=== PATIENT | female | born 1975 | race African-American/Black ===

== ENCOUNTER 2024-09-04 12:40 | Inpatient (IN) | payer OTHER ==
[2024-09-04 13:19] VITALS: BMI 29.7
[2024-09-04] MEDS ORDERED: TRIMETHOBENZAMIDE HCL 200MG/2ML INJ IM ONE (13:43)
[2024-09-04] MEDS ORDERED: LORazepam 2 MG/ML SDV VIAL ONE (13:43)
[2024-09-04] MEDS ORDERED: BENZOCAINE/MENTHOL (CHLORASEPTIC ) LOZENGE MM PRN (13:45)
[2024-09-04] MEDS ORDERED: guaiFENesin 600 MG TABLET.ER (FP) PO PRN (13:45)
[2024-09-04] MEDS ORDERED: BISMUTH SUBSALICYLATE 524 MG/30 ML PO PRN (13:45)
[2024-09-04] MEDS ORDERED: POLYETHYLENE GLYCOL (HEALTHYLAX) 3350 17 GM PACKET PO PRN (13:45)
[2024-09-04] MEDS ORDERED: ACETAMINOPHEN 325 MG TABLET (FP) PO PRN (13:45)
[2024-09-04] MEDS ORDERED: MAGNESIUM HYDROX 2400MG/30ML ORAL SUSPENSION 30 ML CUP PO PRN (13:45)
[2024-09-04] MEDS ORDERED: ONDANSETRON *ODT* 4 MG TABLET SL PRN (13:45)
[2024-09-04] MEDS ORDERED: LOPERAMIDE HCL 2 MG CAPSULE PO PRN (13:45)
[2024-09-04] MEDS ORDERED: MAG HYDROX/AL HYDROX/SIMETH 30 ML UNIT-DOSE CUP PO PRN (13:45)
[2024-09-04] MEDS ORDERED: IBUPROFEN 600 MG TABLET (FP) PO PRN (13:45)
[2024-09-04] MEDS ORDERED: IBUPROFEN 400 MG TABLET (FP) PO PRN (13:45)
[2024-09-04] MEDS ORDERED: BENZONATATE 200 MG CAPSULE PO PRN (13:45)
[2024-09-04] MEDS ORDERED: DICYCLOMINE HCL 10 MG CAPSULE PO PRN (13:45)
[2024-09-04] MEDS ORDERED: chlordiazePOXIDE HCL 25 MG CAPSULE PO PRN (13:47)
[2024-09-04] MEDS: TRIMETHOBENZAMIDE HCL 200MG/2ML INJ IM ONE (13:52)
[2024-09-04] MEDS: LORazepam 2 MG/ML SDV VIAL IM ONE (13:53)
[2024-09-04] MEDS: chlordiazePOXIDE HCL 25 MG CAPSULE PO SCH (17:16)
[2024-09-04] MEDS: hydrOXYzine PAMOATE 25 MG CAPSULE (FP) PO PRN (22:28)
[2024-09-04] MEDS: MELATONIN 5 MG TABLETS PO SCH (22:28)
[2024-09-04] MEDS: METHOCARBAMOL 500 MG TABLET PO PRN (22:28)
[2024-09-04] MEDS: THIAMINE 100 MG TABLET PO SCH (22:29)
[2024-09-05] MEDS: PRENATAL VITAMINS W/ FOLIC ACID TABLET (FP) PO SCH (09:43)
[2024-09-05 11:57] LABS: HEMATOCRIT 38.3 % (32.4-45.2); HEMOGLOBIN 12.9 GM/dL (10.7-15.3); MCH 31.2 pg (25.7-33.7); MCHC 33.7 g/dl (32.0-36.0); MEAN CELL VOLUME 92.3 fl (80-96); MEAN PLT VOLUME 8.9 fl (7.5-11.1); PLATELET COUNT 206 10^3/uL (134-434); RBC 4.15 M/mm3 (3.60-5.2); RDW 17.1 % (11.6-15.6); WHITE BLOOD COUNT 5.2 K/mm3 (4.0-10.0)
[2024-09-05 12:12] LABS: POTASSIUM 4.7 mmol/L (3.5-5.1)
[2024-09-05 12:16] LABS: ALBUMIN 4.2 g/dl (3.4-5.0); BLOOD UREA NITROGEN 9.1 mg/dL (7-18)
[2024-09-05 12:17] LABS: CALCIUM 10.1 mg/dL (8.5-10.1)
[2024-09-05 12:20] LABS: CREATININE 0.8 mg/dL (0.55-1.3)
[2024-09-05 12:21] LABS: BILIRUBIN,TOTAL 1.2 mg/dL (0.2-1); TOT PROT 8.5 g/dl (6.4-8.2)
[2024-09-05] MEDS: GABAPENTIN 100 MG CAPSULE PO SCH (14:39)
[2024-09-05] MEDS: METOPROLOL TARTRATE 25 MG TABLET (FP) PO SCH (14:39)
[2024-09-05] MEDS: LORazepam 2 MG TABLET PO SCH (17:39)
[2024-09-05] MEDS: QUEtiapine FUMARATE 50 MG TABLET PO SCH (22:05)
[2024-09-06] MEDS ORDERED: chlordiazePOXIDE HCL 25 MG CAPSULE PO SCH (05:00)
[2024-09-06] MEDS: LORazepam 1 MG TABLET PO PRN (13:17)
[2024-09-07] MEDS ORDERED: chlordiazePOXIDE HCL 10 MG CAPSULE PO PRN
[2024-09-07] MEDS ORDERED: chlordiazePOXIDE HCL 10 MG CAPSULE PO SCH (05:00)
[2024-09-07] MEDS: LORazepam 1 MG TABLET PO SCH (05:58)
[2024-09-08] MEDS ORDERED: LORazepam 0.5 MG TABLET PO PRN
[2024-09-08] MEDS ORDERED: chlordiazePOXIDE HCL 10 MG CAPSULE PO SCH (05:00)
[2024-09-08] MEDS: LORazepam 0.5 MG TABLET PO SCH (05:55)
[2024-09-09] MEDS ORDERED: chlordiazePOXIDE HCL 10 MG CAPSULE PO ONE (05:00)
[2024-09-09] MEDS: LORazepam 0.5 MG TABLET PO ONE (06:05)
[2024-09-09 11:12] VITALS: BP 123/86; PULSE 95; RESP 17; TEMP 98.6
== END 2024-09-09 10:03 | disposition home or self-care (01) | DRG 775 ==
LOC: YASAS 12:40 → Y6N 13:54
PROVIDERS: ADMIT Allergy & Immunology; ATTEND Surgery
PROC: HZ2ZZZZ Detoxification Services for Substance Abuse Treatment (ICD-10-PCS; principal; 2024-09-04)
DX: F10.230 Alcohol dependence with withdrawal, uncomplicated (principal); F25.0 Schizoaffective disorder, bipolar type; I10 Essential (primary) hypertension; R74.8 Abnormal levels of other serum enzymes
CPT/HCPCS: 36415; 80053; 80305; 80307; 81025; 84450; 85027; 86780; 93005; 93010

== ENCOUNTER 2025-01-17 13:10 | Inpatient (IN) | payer OTHER ==
[2025-01-17] MEDS ORDERED: IBUPROFEN 400 MG TABLET (FP) PO PRN (13:33)
[2025-01-17] MEDS ORDERED: NALOXONE (NARCAN) HCL 4 MG/0.1 ML SPRAY NS PRN (13:33)
[2025-01-17] MEDS ORDERED: BISMUTH SUBSALICYLATE 524 MG/30 ML PO PRN (13:33)
[2025-01-17] MEDS ORDERED: MAGNESIUM HYDROX 2400MG/30ML ORAL SUSPENSION 30 ML CUP PO PRN (13:33)
[2025-01-17] MEDS ORDERED: guaiFENesin 600 MG TABLET.ER (FP) PO PRN (13:33)
[2025-01-17] MEDS ORDERED: ACETAMINOPHEN 325 MG TABLET (FP) PO PRN (13:33)
[2025-01-17] MEDS ORDERED: IBUPROFEN 600 MG TABLET (FP) PO PRN (13:33)
[2025-01-17] MEDS ORDERED: BENZOCAINE/MENTHOL (CHLORASEPTIC ) LOZENGE MM PRN (13:33)
[2025-01-17] MEDS ORDERED: POLYETHYLENE GLYCOL (HEALTHYLAX) 3350 17 GM PACKET PO PRN (13:33)
[2025-01-17] MEDS ORDERED: BENZONATATE 200 MG CAPSULE PO PRN (13:33)
[2025-01-17 13:34] VITALS: BMI 31.2
[2025-01-17] MEDS: ONDANSETRON *ODT* 4 MG TABLET SL PRN (14:08)
[2025-01-17] MEDS ORDERED: LORazepam 2 MG TABLET ONE ×2 (14:14→16:57)
[2025-01-17] MEDS: LORazepam 2 MG TABLET PO ONE (14:16)
[2025-01-17] MEDS: PRENATAL VITAMINS W/ FOLIC ACID TABLET (FP) PO SCH (14:17)
[2025-01-17] MEDS: LORazepam 2 MG TABLET PO SCH (17:00)
[2025-01-17] MEDS: THIAMINE 100 MG TABLET PO SCH (22:20)
[2025-01-17] MEDS: MELATONIN 5 MG TABLETS PO SCH (22:20)
[2025-01-17] MEDS: MAG HYDROX/AL HYDROX/SIMETH 30 ML UNIT-DOSE CUP PO PRN (23:11)
[2025-01-18] MEDS: NALTREXONE HCL 50 MG TABLET PO SCH (10:36)
[2025-01-18 11:49] LABS: HEMATOCRIT 38.9 % (34.1-44.9); HEMOGLOBIN 12.9 g/dL (11.2-15.7); MCHC 33.2 g/dl (32.2-35.5); MEAN CELL VOLUME 88.6 fl (79.4-94.8); PLATELET COUNT 159 x10^3/uL (182-369); RDW 14.1 % (12.2-17.1)
[2025-01-18 11:54] LABS: CALCIUM 9.3 mg/dL (8.5-10.1)
[2025-01-18 11:55] LABS: ALBUMIN 4.5 g/dl (3.4-5.0); BLOOD UREA NITROGEN 10.5 mg/dL (7-18)
[2025-01-18 11:58] LABS: CREATININE 0.8 mg/dL (0.55-1.3)
[2025-01-18 12:00] LABS: BILIRUBIN,TOTAL 0.9 mg/dL (0.2-1); TOT PROT 8.6 g/dl (6.4-8.2)
[2025-01-18] MEDS: GABAPENTIN 300 MG CAPSULE PO SCH (14:07)
[2025-01-18] MEDS: POTASSIUM CHLORIDE ORAL LIQUID 20 MEQ/15 ML PO ONE ×2 (16:05→22:36)
[2025-01-18] MEDS: LORazepam 1 MG TABLET PO PRN (18:23)
[2025-01-18] MEDS: QUEtiapine FUMARATE 50 MG TABLET PO SCH (22:36)
[2025-01-19] MEDS: LORazepam 1 MG TABLET PO SCH (05:57)
[2025-01-19 13:37] LABS: POTASSIUM 3.2 mmol/L (3.5-5.1)
[2025-01-19 13:55] LABS: CALCIUM 9.8 mg/dL (8.5-10.1)
[2025-01-19 13:57] LABS: BLOOD UREA NITROGEN 9.7 mg/dL (7-18)
[2025-01-19 14:15] LABS: CREATININE 0.8 mg/dL (0.55-1.3)
[2025-01-19] MEDS: DICYCLOMINE HCL 10 MG CAPSULE PO PRN (15:02)
[2025-01-19] MEDS: POTASSIUM CHLORIDE ORAL LIQUID 20 MEQ/15 ML PO ONE ×2 (15:02→20:04)
[2025-01-19] MEDS: PANTOPRAZOLE 40 MG TABLET PO SCH (17:53)
[2025-01-19] MEDS: METHOCARBAMOL 500 MG TABLET PO PRN (22:15)
[2025-01-19] MEDS: FAMOTIDINE 20 MG TABLET PO SCH (22:16)
[2025-01-20] MEDS ORDERED: LORazepam 0.5 MG TABLET PO PRN
[2025-01-20] MEDS: LORazepam 0.5 MG TABLET PO SCH (05:36)
[2025-01-20 09:33] LABS: HEMATOCRIT 38.1 % (34.1-44.9); HEMOGLOBIN 12.2 g/dL (11.2-15.7); MEAN CELL VOLUME 93.4 fl (79.4-94.8); MEAN PLT VOLUME 10.8 fl (9.4-12.3); PLATELET COUNT 143 x10^3/uL (182-369); RDW 14.5 % (12.2-17.1)
[2025-01-20 09:34] LABS: POTASSIUM 3.9 mmol/L (3.5-5.1)
[2025-01-20 09:41] LABS: ALBUMIN 3.9 g/dl (3.4-5.0); BLOOD UREA NITROGEN 10.9 mg/dL (7-18); CALCIUM 9.8 mg/dL (8.5-10.1)
[2025-01-20 09:42] LABS: MAGNESIUM 2.2 mg/dL (1.8-2.4)
[2025-01-20 09:44] LABS: CREATININE 0.9 mg/dL (0.55-1.3)
[2025-01-20 09:45] LABS: TOT PROT 7.7 g/dl (6.4-8.2)
[2025-01-20] MEDS: hydrOXYzine PAMOATE 25 MG CAPSULE (FP) PO PRN (17:29)
[2025-01-21] MEDS: LORazepam 0.5 MG TABLET PO ONE (05:58)
[2025-01-21 07:05] VITALS: RESP 16
[2025-01-21 09:26] VITALS: BP 133/90; PULSE 90; TEMP 97.8
[2025-01-21] MEDS: LOPERAMIDE HCL 2 MG CAPSULE PO PRN (09:28)
== END 2025-01-21 11:08 | disposition home or self-care (01) | DRG 775 ==
LOC: YASAS 13:10 → Y3N 16:24
PROVIDERS: ADMIT Allergy & Immunology; ATTEND Allergy & Immunology
PROC: HZ2ZZZZ Detoxification Services for Substance Abuse Treatment (ICD-10-PCS; principal; 2025-01-17)
DX: F10.230 Alcohol dependence with withdrawal, uncomplicated (principal); F25.0 Schizoaffective disorder, bipolar type; E87.6 Hypokalemia; I10 Essential (primary) hypertension; K21.9 Gastro-esophageal reflux disease without esophagitis; Z85.51 Personal history of malignant neoplasm of bladder
CPT/HCPCS: 36415; 80048; 80053; 80305; 80307; 81025; 83690; 83735; 85027; 86780; 93005; 93010; Q0162

== ENCOUNTER 2025-02-27 11:59 | Inpatient (IN) | payer OTHER ==
[2025-02-27 12:22] VITALS: BMI 31.4
[2025-02-27] MEDS ORDERED: IBUPROFEN 600 MG TABLET (FP) PO PRN (12:45)
[2025-02-27] MEDS ORDERED: MAGNESIUM HYDROX 2400MG/30ML ORAL SUSPENSION 30 ML CUP PO PRN (12:45)
[2025-02-27] MEDS ORDERED: BISMUTH SUBSALICYLATE 524 MG/30 ML PO PRN (12:45)
[2025-02-27] MEDS ORDERED: BENZONATATE 200 MG CAPSULE PO PRN (12:45)
[2025-02-27] MEDS ORDERED: guaiFENesin 600 MG TABLET.ER (FP) PO PRN (12:45)
[2025-02-27] MEDS ORDERED: BENZOCAINE/MENTHOL (CHLORASEPTIC ) LOZENGE MM PRN (12:45)
[2025-02-27] MEDS ORDERED: LOPERAMIDE HCL 2 MG CAPSULE PO PRN (12:45)
[2025-02-27] MEDS ORDERED: ACETAMINOPHEN 325 MG TABLET (FP) PO PRN (12:45)
[2025-02-27] MEDS ORDERED: DICYCLOMINE HCL 10 MG CAPSULE PO PRN (12:45)
[2025-02-27] MEDS ORDERED: IBUPROFEN 400 MG TABLET (FP) PO PRN (12:45)
[2025-02-27] MEDS ORDERED: POLYETHYLENE GLYCOL (HEALTHYLAX) 3350 17 GM PACKET PO PRN (12:45)
[2025-02-27] MEDS ORDERED: NALOXONE (NARCAN) HCL 4 MG/0.1 ML SPRAY NS PRN (12:45)
[2025-02-27] MEDS: TRIMETHOBENZAMIDE HCL 200MG/2ML INJ IM ONE (13:14)
[2025-02-27] MEDS: LORazepam 2 MG TABLET PO ONE (13:22)
[2025-02-27] MEDS: PRENATAL VITAMINS W/ FOLIC ACID TABLET (FP) PO SCH (14:20)
[2025-02-27] MEDS: LORazepam 2 MG TABLET PO SCH (17:38)
[2025-02-27] MEDS: ONDANSETRON *ODT* 4 MG TABLET SL PRN (17:58)
[2025-02-27] MEDS: GABAPENTIN 300 MG CAPSULE PO SCH ×2 (22:10→23:15)
[2025-02-27] MEDS: MELATONIN 5 MG TABLETS PO SCH (23:02)
[2025-02-27] MEDS: THIAMINE 100 MG TABLET PO SCH (23:09)
[2025-02-27] MEDS: QUEtiapine FUMARATE 50 MG TABLET PO SCH ×2 (23:09→23:15)
[2025-02-28] MEDS: NICOTINE 14 MG/24 HOURS TOPICAL PATCH TD SCH (10:22)
[2025-02-28] MEDS: METHOCARBAMOL 500 MG TABLET PO PRN (10:23)
[2025-02-28] MEDS: NALTREXONE HCL 50 MG TABLET PO SCH (10:23)
[2025-02-28 11:20] LABS: HEMATOCRIT 39.8 % (34.1-44.9); HEMOGLOBIN 13.5 g/dL (11.2-15.7); MCHC 33.9 g/dl (32.2-35.5); PLATELET COUNT 228 x10^3/uL (182-369); RDW 15.4 % (12.2-17.1)
[2025-02-28] MEDS: METOPROLOL TARTRATE 25 MG TABLET (FP) PO SCH (14:06)
[2025-02-28 15:31] LABS: POTASSIUM 4.6 mmol/L (3.5-5.1)
[2025-02-28 15:33] LABS: CALCIUM 9.8 mg/dL (8.5-10.1)
[2025-02-28 15:34] LABS: ALBUMIN 4.6 g/dl (3.4-5.0); BLOOD UREA NITROGEN 4.6 mg/dL (7-18)
[2025-02-28 15:37] LABS: CREATININE 0.8 mg/dL (0.55-1.3)
[2025-02-28 15:38] LABS: TOT PROT 8.7 g/dl (6.4-8.2)
[2025-02-28 15:39] LABS: BILIRUBIN,TOTAL 0.9 mg/dL (0.2-1)
[2025-02-28] MEDS: hydrOXYzine PAMOATE 25 MG CAPSULE (FP) PO PRN (17:27)
[2025-02-28] MEDS: LORazepam 1 MG TABLET PO PRN (19:13)
[2025-03-01] MEDS: LORazepam 1 MG TABLET PO SCH (05:50)
[2025-03-01] MEDS: PANTOPRAZOLE 40 MG TABLET PO SCH (11:01)
[2025-03-01] MEDS: GABAPENTIN 300 MG CAPSULE PO SCH (22:43)
[2025-03-01] MEDS: QUEtiapine FUMARATE 50 MG TABLET PO SCH (22:43)
[2025-03-01] MEDS: MAG HYDROX/AL HYDROX/SIMETH 30 ML UNIT-DOSE CUP PO PRN (22:48)
[2025-03-02] MEDS ORDERED: LORazepam 0.5 MG TABLET PO PRN
[2025-03-02] MEDS: LORazepam 0.5 MG TABLET PO SCH (05:52)
[2025-03-02 09:53] VITALS: BP 124/104; PULSE 96; RESP 18; TEMP 97.9
[2025-03-03] MEDS ORDERED: LORazepam 0.5 MG TABLET PO ONE (05:00)
== END 2025-03-02 10:03 | disposition home or self-care (01) | DRG 775 ==
LOC: YASAS 11:59 → Y6N 13:12
PROVIDERS: ADMIT Allergy & Immunology; ATTEND Allergy & Immunology
PROC: HZ2ZZZZ Detoxification Services for Substance Abuse Treatment (ICD-10-PCS; principal; 2025-02-27)
DX: F10.230 Alcohol dependence with withdrawal, uncomplicated (principal); F12.20 Cannabis dependence, uncomplicated; F10.280 Alcohol dependence with alcohol-induced anxiety disorder; F10.282 Alcohol dependence with alcohol-induced sleep disorder; F25.0 Schizoaffective disorder, bipolar type; I10 Essential (primary) hypertension; K21.9 Gastro-esophageal reflux disease without esophagitis; Z87.19 Personal history of other diseases of the digestive system; Z85.51 Personal history of malignant neoplasm of bladder
CPT/HCPCS: 36415; 80053; 80305; 80307; 81025; 85027; 86780; 93005; 93010; Q0162